=== PATIENT | female | born 1970 | race Caucasian/White ===

== ENCOUNTER 2024-07-01 09:03 | Emergency (ER) | payer OTHER ==
--- OUTSIDE RECORDS SUMMARY | 2024-07-01 09:05 | XMS REPORT | Continuity of Care Document ---
Author Name Unknown Address [address] [facility] [address] th[address] Address [address] [facility] 1 [address] [place] [address] Care Team Providers Care Stainless Steel Finisher Name Role Phone Quintin Reddy Attending Clinician Unavailable Keerthi Agrawal Attending Clinician Unavailable [email or web address]_S Attending Clinician Unavaila ble [email or web address]_S Admitting Clinician Unavaila ble Payers Payer Name Policy Type Policy Number Effective Date Expirati on Date Source [employer] (EPO) [id number] 2018 00:00:00 Problems Condition Name Condition Details Condition Category Status Onset Date Resolution Date Last Treatment Date Treating Clinician Comments Source Atrophic vaginitis Atrophic Vaginitis Problem Active 07-09 00:00: 00 [facility] Dysmenorrh ea Dysmenorrh ea Problem Active 07-01 00:00: 00 [facility] Polymenorr hea Polymenorr hea Problem Active 07-01 00:00: 00 [facility] Postmenopa usal bleeding Postmenopa usal Bleeding Problem Active 07-01 00:00: 00 [facility] Excessive menstruati on with irregular cycle Excessive Menstruati on with Irregular Cycle Problem Active 07-01 00:00: 00 [facility] Inconclusi ve mammograph y finding Inconclusi ve Mammograph y Finding Problem Active 06-23 00:00: 00 [facility] Abnormal findings on diagnostic imaging of breast Abnormal Findings on Diagnostic Imaging of Breast Problem Active 06-23 00:00: 00 [facility] Superficia l pain on intercours e Superficia l Pain on Intercours e Problem Active 2018-05 00:00: 00 [facility] Hyperlipid emia Hyperlipid emia Problem Active 2017-05 00:00: 00 [facility] Pruritus of vulva Pruritus of Vulva Problem Active 2017-05 00:00: 00 [facility] Candidiasi s of vagina Candidiasi s of Vagina Problem Active 2017-05 00:00: 00 [facility] Essential hypertensi on Essential Hypertensi on Problem Active 2016-05 00:00: 00 [facility] Increased frequency of urination Increased Frequency of Urination Problem Active 2016-05 00:00: 00 [facility] Lateral cystocele Lateral Cystocele Problem Active 2015-05 0 00:00: 00 [facility] Irregular periods Irregular Periods Problem Active 2015-05 0 00:00: 00 [facility] Gynecologi don examinatio n abnormal Gynecologi don Examinatio n Abnormal Problem Active 12-21 00:00: 00 [facility] Social History Smoking Status Start Date Stop Date Source Never Smoker [facility] Medications Ordered Medication Name Filled Medication Name Start Date Stop Date Current Medication? Ordering Clinician Indication Dosage Frequency Signature (SIG) Comments Components Source lisinopril 20 mg tablet 1 tablet; Once a day lisinopril 20 mg tablet 1 tablet; Once a day 07-09 00:00: 00 No lisinopril 20 mg tablet 1 tablet; Once a day [facility] estradiol 0.01% (0.1 mg/gram) vaginal cream 0.5 grams wth applicator; three times a week; 90 days estradiol 0.01% (0.1 mg/gram) vaginal cream 0.5 grams wth applicator; three times a week; 90 days No estradiol 0.01% (0.1 mg/gram) vaginal cream 0.5 grams wth applicator ; three times a week; 90 days [facility] estradiol 0.01% (0.1 mg/gram) vaginal cream 0.5 grams wth applicator; three times a week; 90 days estradiol 0.01% (0.1 mg/gram) vaginal cream 0.5 grams wth applicator; three times a week; 90 days No estradiol 0.01% (0.1 mg/gram) vaginal cream 0.5 grams wth applicator ; three times a week; 90 days [facility] rosuvastati n rosuvastati n No rosuvastat in [facility] Vital Signs Vital Name Observation Time Observation Value Comments S ource BP Diastolic 2023-07-09 00:00:00 87 mm[Hg] [facility] Body Weight 2023-07-09 00:00:00 168.6 [lb_av] [facility] BMI (Body Mass Index) 2023-07-09 00:00:00 28.9 kg/m2 [facility] Height 2023-07-09 00:00:00 64 [in_i] [facility] BP Systolic 2023-07-09 00:00:00 128 mm[Hg] [facility] Procedures Procedure Date / Time Performed Performing Clinicia n Source MAMMO, screening, digital, bilateral 2023-07-09 00:00:00 [facility] US, transvaginal 2023-07-01 00:00:00 [facility] Hysteroscopy 2022-08-12 00:00:00 [facility] Plan of Care Planned Activity Planned Date Details Comments Source Future Appointment 2024-07-10 09:00:00 Cielo johnson, [address] [place]; [facility] [address], [place] [address] [facility] Medical Encounters Start Date/Time End Date/Time Encounter Type Admission Type Attending Clinicians Care Facility Care Department Encounter ID Source 2024-02-01 11:59:00 [facility] [id number] [facility] 2023-08-19 11:35:01 [facility] [id number] [facility] 2023-02-15 15:11:01 [facility] [id number] [facility] 2022-09-29 10:51:02 Outpatient Keerthi [facility]rawal [facility] [id number] [facility] 2023-07-09 00:00:00 2023-07-09 00:00:00 Outpatient GC_GCBZW_Ka jeana_S PRIV PRIV [id number] [facility] 2023-07-09 00:00:00 2023-07-09 00:00:00 LUIS FELIPE Henry: [address], [address], [place] [address] , Ph. [facility] - [email or web address] nirav Buckeye* [id number] [facility] 2023-07-06 00:00:00 2023-07-06 00:00:00 Outpatient GC_GCBZW_Ka diyala_S PRIV PRIV [id number] [facility] 2023-07-01 00:00:00 2023-07-01 00:00:00 Outpatient GC_GCBZW_Ka diyala_S PRIV PRIV [id number] [facility] 2023-07-01 00:00:00 2023-07-01 00:00:00 Rupali Ham MD: [address], [facility] [address], [place] [address] , Ph. [facility] - [email or web address]_Amaya gastelum Buckeye* [id number] [facility] 2023-06-30 00:00:00 2023-06-30 00:00:00 Outpatient GC_GCBZW_Ka diyala_S PRIV PRIV [id number] [facility] 2023-06-29 00:00:00 2023-06-29 00:00:00 Outpatient GC_GCBZW_Ka diyala_S PRIV PRIV [id number] [facility] 2023-03-13 00:00:00 2023-03-13 00:00:00 Outpatient [email or web address]_Ka diyala_S PRIV PRIV [id number] [facility]
[2024-07-01] MEDS ORDERED: FLUORESCEIN SODIUM 1 MG/WRAP ONE (09:25)
[2024-07-01] MEDS ORDERED: TETRACAINE HCL 0.5% 4ML OPTH ONE (09:25)
[2024-07-01 10:07] LABS: SARS-CoV-2 Antigen CONTROL BLUE LINE VIS/BG OK; SARS-CoV-2 Antigen Rapid Res Negative (Negative)
--- NOTE | 2024-07-01 10:16 | ER ---
Nurse's Notes [facility] [place] Name: Berta Melchor Age: 54 yrs Sex: Female : 1970 Arrival Date: 07/01/2024 Time: 09:03 Bed 12 Private MD: Diagnosis: Unspecified acute conjunctivitis, bilateral;Acute upper respiratory infection, unspecified Presentation: 07/01 09:24 Chief complaint: Bilateral eye pain, redness and drainage, headache, sore throat, sinus hb congestion, runny nose x 5 days. Coronavirus screen: Client presents with at least one sign or symptom that may indicate coronavirus-19. Provider contacted for isolation considerations. Ebola Screen: No symptoms or risks identified at this time. 09:24 Method Of Arrival: Ambulatory hb 09:24 Mechanism of Injury: No Mechanism of Injury. The patient denies any loss of vision. hb Initial Sepsis Screen: Does the patient meet any 2 criteria? No. Patient's initial sepsis screen is negative. Does the patient have a suspected source of infection? No. Patient's initial sepsis screen is negative. Risk Assessment: Do you want to hurt yourself or someone else? Patient reports no desire to harm self or others. Onset of symptoms was June 27, 2024. 09:24 Acuity: BRIAN 4 hb Triage Assessment: 09:26 General: Appears in no apparent distress. uncomfortable, Behavior is calm, cooperative. hb Pain: Pain currently is 5 out of 10 on a pain scale. EENT: Sclera/Cornea reddened . EENT: Reports nasal congestion nasal discharge pain since bilateral eye. Neuro: Level of Consciousness is awake, alert, obeys commands, Oriented to person, place, time, situation. Cardiovascular: Patient's skin is warm and dry. Respiratory: Respiratory effort is even, unlabored, Respiratory pattern is regular, symmetrical. Historical: - Allergies: 09:25 No Known Allergies; hb - Home Meds: 09:25 lisinopril 40 mg Oral tablet daily [Active]; rosuvastatin 20 mg oral tablet daily hb [Active]; - PMHx: 09:25 Hypertension; High Cholesterol; hb - PSHx: 09:25 None; hb - Immunization history:: Adult Immunizations up to date. - Infectious Disease History:: Denies. - Social history:: Smoking status: Patient denies any tobacco usage or history of. Screenin:27 [facility] ED Fall Risk Assessment (Adult) History of falling in the last 3 months, hb including since admission No falls in past 3 months (0 pts) Confusion or Disorientation No (0 pts) Intoxicated or Sedated No (0 pts) Impaired Gait No (0 pts) Mobility Assist Device Used No (0 pt) Altered Elimination No (0 pt) Score/Fall Risk Level 0 - 2 = Low Risk Oriented to surroundings, Maintained a safe environment, Educated pt \T\ family on fall prevention, incl call for assistance when getting out of bed. Abuse screen: Denies threats or abuse. Denies injuries from another. Nutritional screening: No deficits noted. Tuberculosis screening: No symptoms or risk factors identified. Assessment: : General: See triage assessment. hb Vital Signs: 09:24 BP 185 / 96; Pulse 101; Resp 16; Temp 99.2(O); Pulse Ox 100% on R/A; Weight 72.57 kg; hb Height 5 ft. 4 in. ; Pain 5/10; 09:24 Body Mass Index 27.46 (72.57 kg, 162.56 cm) hb 09:24 Pain Scale: Adult hb ED Course: 09:05 Patient arrived in ED. [id number] 09:09 Meggan Sims FNP-C [facility] kb 09:09 Jovan Taylor MD is Attending Physician. kb 09:23 Yamila Retana, EDUARDO is Primary Nurse. hb 09:25 Triage completed. hb 09:26 Arm band placed on. hb 09:27 Patient has correct armband on for positive identification. Provided Education on: use hb of call light, bathroom location . 09:27 No provider procedures requiring assistance completed. hb 09:27 Patient did not have IV access during this emergency room visit. hb 09:34 Pulse ox on. NIBP on. hb 09:34 Strep Sent. hb 09:34 SARS-COV-2 Antigen Rapid Sent. hb 09:34 Flu Sent. hb 09:34 COVID swab sent to lab. Flu and/or RSV swab sent to lab. Strep swab sent to lab. hb Administered Medications: 09:40 Drug: Tetracaine Ophthalmic Drops 0.5 % 1 drops Ophthalmic once Route: Ophthalmic; hb Site: both eyes; 10:30 Follow up: Response: No adverse reaction hb Medication: 09:27 VIS not applicable for this client. hb Outcome: 10:15 Discharge ordered by . kb 10:49 Discharged to home ambulatory, with significant other, hb 10:49 Condition: stable 10:49 Discharge instructions given to patient, Instructed on discharge instructions, follow up and referral plans. medication usage, Demonstrated understanding of instructions, follow-up care, medications, Prescriptions given X 1, 10:50 Patient left the ED. hb Signatures: Meggan Sims, INSPECTOR HEALTH CARE FACILITIES-C INSPECTOR HE[employer] C[employer] FACILITIES-Edwardb Yamila Retana, RN RN Angy Wilson [email or web address]
--- NOTE | 2024-07-01 10:16 | EDPHYS ---
Physician Documentation [facility] Name: Berta Melchor Age: 54 yrs Sex: Female : 1970 Arrival Date: 07/01/2024 Time: 09:03 Bed 12 Private MD: ED Physician Jovan Taylor HPI: 07/01 09:33 This 54 yrs old Female presents to ER via Ambulatory with complaints of Eye Pain, kb Redness of Eye, Drainage From Eye. 09:33 Pt is a 54 year old female who presents for bilateral eye redness, irritation and kb drainage. States the symptoms started Wednesday in right eye and moved to left eye the next day. Pt has also had sore throat, bodyaches, cough, congestion and runny nose since onset of the eye symptoms. Granddaughter had similar symptoms without the eye complaints. . Historical: - Allergies: 09:25 No Known Allergies; hb - Home Meds: 09:25 lisinopril 40 mg Oral tablet daily [Active]; rosuvastatin 20 mg oral tablet daily hb [Active]; - PMHx: 09:25 Hypertension; High Cholesterol; hb - PSHx: 09:25 None; hb - Immunization history:: Adult Immunizations up to date. - Infectious Disease History:: Denies. - Social history:: Smoking status: Patient denies any tobacco usage or history of. ROS: 09:28 Constitutional: As per HPI kb Exam: 09:28 Constitutional: This is a well developed, well nourished patient who is awake, alert, kb and in no acute distress. Head/Face: Normocephalic, atraumatic. ENT: Moist Mucous membranes Cardiovascular: Regular rate Respiratory: Respirations even and unlabored. No increased work of breathing. Talking in full sentences Skin: Warm, dry with normal turgor. Normal color. MS/ Extremity: Pulses equal, no cyanosis. Neurovascular intact. Full, normal range of motion. Neuro: Awake and alert, GCS 15, oriented to person, place, time, and situation. 09:28 Eyes: Periorbital structures: appear normal, Pupils: equal, round, and reactive to light and accomodation, Extraocular movements: intact throughout, Conjunctiva: injected, bilaterally, 09:54 Eyes: Corneas: abrasion, is not appreciated, foreign body, is not appreciated, a kb fluorescein strip employed to appreciate the findings, Intraocular pressure: right eye = 18mmHg, left eye = 17mmHg, Vital Signs: 09:24 BP 185 / 96; Pulse 101; Resp 16; Temp 99.2(O); Pulse Ox 100% on R/A; Weight 72.57 kg; hb Height 5 ft. 4 in. ; Pain 5/10; 09:24 Body Mass Index 27.46 (72.57 kg, 162.56 cm) hb 09:24 Pain Scale: Adult hb MDM: 09:09 Medical Screening Exam initiated 09:33 Differential diagnosis: Corneal abrasion of Corneal ulcer of Foreign body in Acute kb iritis of Acute glaucoma in Data reviewed: vital signs, nurses notes. Historians other than the Patient: Spouse/Significant Other: . 10:14 Counseling: I had a detailed discussion with the patient and/or guardian regarding the kb historical points, exam findings, and any diagnostic results supporting the discharge/admit diagnosis, lab results, the need for outpatient follow up, a family practitioner, to return to the emergency department if symptoms worsen or persist or if there are any questions or concerns that arise at home. 07/01 09:21 Order name: Flu; Complete Time: 10:11 07/01 09:21 Order name: SARS-COV-2 Antigen Rapid; Complete Time: 10:11 07/01 09:21 Order name: Strep 07/01 10:10 Order name: Throat Culture [facility] 07/01 09:23 Order name: Eye Tray; Complete Time: 09:34 07/01 09:23 Order name: Fluoresene Opth strip; Complete Time: 09:34 kb Administered Medications: 09:40 Drug: Tetracaine Ophthalmic Drops 0.5 % 1 drops Ophthalmic once Route: Ophthalmic; Site: both eyes; 10:30 Follow up: Response: No adverse reaction hb Disposition Summary: 07/01/24 10:15 Discharge Ordered Notes: Location: Home Condition: Stable kb Diagnosis - Unspecified acute conjunctivitis, bilateral kb - Acute upper respiratory infection, unspecified kb Followup: kb - With: Emergency Department - When: As needed - Reason: Worsening of condition Followup: kb - With: Private Physician - When: 2 - 3 days - Reason: Recheck today's complaints, Continuance of care, Re-evaluation by your physician Discharge Instructions: - Discharge Summary Sheet kb - Viral Conjunctivitis, Adult kb - Upper Respiratory Infection, Adult, [id number] kb - Bacterial Conjunctivitis, Adult, [id number] kb Forms: - Medication Reconciliation Form kb - Antibiotic Education kb - Prescription Opioid Use kb - Patient Portal Instructions kb - Leadership Thank You Letter kb Prescriptions: - Vigamox 0.5 % Ophthalmic Drops - instill 1 drop OPHTHALMIC route every 8 hours for 7 days; 5 milliliter; kb Refills: 0, Product Selection Permitted Signatures: Dispatcher [employer] EDMeggan Betancur, CONTINUOUS DRYOUT OPERATOR-C CONTINUOUS DRYOUT OPERATOR-Yamila Herr, RN RN hb
[2024-07-01 10:54] VITALS: BP 185/96; TEMP 99.2; O2SAT 100
== END 2024-07-01 10:50 | disposition home or self-care (01) ==
LOC: ER 09:03
DX: H10.33 Unspecified acute conjunctivitis, bilateral (principal); J06.9 Acute upper respiratory infection, unspecified; Z11.52 Encounter for screening for COVID-19; I10 Essential (primary) hypertension; E78.00 Pure hypercholesterolemia, unspecified
CPT/HCPCS: 36415; 87070; 87081; 87804; 87811; 99284